=== PATIENT | female | born 1985 | race American Indian/Alaskan Native ===

== ENCOUNTER 2017-06-25 09:46 | Inpatient (IN) | payer MEDICAID ==
[2017-06-25] MEDS ORDERED: XYLOCAINE 2% INFILTRATI ONE (09:50)
[2017-06-25] MEDS ORDERED: ZOFRAN IV PRN (09:50)
[2017-06-25] MEDS ORDERED: ePHEDrine SULFATE IV PRN ×2 (09:50→17:19)
[2017-06-25] MEDS ORDERED: PITOCin/NS 20 UNIT/1000ML DRIP 20 UNITS/1,000 ML BAG IV SCH ×2 (10:00→20:30)
--- NOTE | 2017-06-25 10:14 | History and Physical Report ---
History of Present Illness Date of examination: 06/25/17 (pt called c/o SROM) Date of admission: 06/25/17 09:46 History of present illness: EDC Confirmation: 06/17/2017 Gestational Age: 7 2/7 weeks Past History Para: 2 2 Mult. Births: 0 Prev : 0 Prev. attempt? 0 Aborta: 0 Elect. Ab: 0 Spont. Ab: 0 Ectopics: 0 # 1 Delivery date: 01/17/2005 Hours of labor: 9 Anesthesia type: epidural Name: Lizbeth Past Medical History: Anemia Past Surgical History: Reviewed history from 01/22/2012 and no changes required: Cholecystectomy---2005 Family History Summary: Other family member - Has Family History Breast Cancer - Entered On: 10/31/2016 General Comments - FH: Family History of Hypertension No Family History of Breast Cancer No Family History of Colon Cancer No Family History of Ovarvian Cancer Social History: Patient is single no etoh, no illicit drug use, no tobacco use [employer] Risk Factors: Smoked Tobacco Use: Current every day smoker Cigarettes: Yes -- 3cig pack(s) per day, Counseled to quit/cut down: yes Alcohol use: no Past Medical History Abnormal PAP: negative Uterine Anomaly: negative Social Hx: Patient is single no etoh, no illicit drug use, no tobacco use [employer] Infection History Hx of STD: chlamydia Personal hx. of genital herpes: no Partner hx. of genital herpes: no Genetic History Congenital Heart Defect: Mom: no Dad: no Chloe Disease: Mom: no Dad: no Thalassemia Mom: no Dad: no Neural Tube Defect Mom: no Dad: no Down's Syndrome Mom: no Dad: no Gopal-Sachs Mom: no Dad: no Sickle Cell Disease/Trait Mom: yes Dad: no Comments: 1/2 brother has trait Hemophilia Mom: no Dad: no Muscular Dystrophy Mom: no Dad: no Cystic Fibrosis Mom: no Dad: no [place] Chorea Mom: no Dad: no Mental Retardation Mom: no Dad: no Fragile X Mom: no Dad: no Other Genetic/Chromosomal Disorder Mom: no Dad: no Child w/other defect Mom: no Dad: no Enviromental Exposures Xray Exposure: no Medication, drug, or alcohol use since LMP: no Chemical/Other Exposure: no Exposure to Cat Liter: no Active Medications (reviewed today): RX 1 TABS ( VIT-FE FUMARATE-FA TABS) one po q day FEOSOL 325 (65 FE) MG TABS (FERROUS SULFATE) one q day ZOFRAN ODT 8 MG TBDP (ONDANSETRON) 1 po q12hrs prn Current Allergies (reviewed today): No known allergies Laboratory Results Date/Time Collected: 10/31/2016 Routine Urinalysis Leukocytes: negative Nitrite: negative Urobilinogen: negative Protein: negative Blood: negative Ketone: negative Bilirubin: negative Glucose: negative Urine HCG: positive Review of Systems General Complains of fatigue. Denies fever, chills, sweats, anorexia, weakness, malaise, weight loss and sleep disorder. Complains of pelvic pain. Denies vaginal discharge, incontinence, dysuria, hematuria, urinary frequency, amenorrhea, menorrhagia, abnormal vaginal bleeding, genital sores, decreased libido, painful periods, painful sex, urinary urgency, hot flashes, vaginal dryness, vaginal itching and vaginal odor. CV Denies chest pains, palpitations, syncope, dyspnea on exertion, orthopnea, PND and peripheral edema. Resp Denies cough, dyspnea at rest, excessive sputum, hemoptysis, wheezing and pleurisy. GI Complains of nausea and vomiting. Denies diarrhea, constipation, change in bowel habits, abdominal pain, melena, hematochezia, jaundice, gas/bloating, indigestion/heartburn, dysphagia and odynophagia. Breast Complains of breast pain. Denies left breast lump, right breast lump, nipple discharge, bloody discharge from nipple, abnormal mammogram and breast enlargement. Psych Denies depression, anxiety, irritability and mood swings. PHYSICAL EXAM HEENT: normocephalic, no lesions or deformities Neck/Thyroid: supple, thyroid normal Skin no ulcers, xanthomas Chest: respiratory effort normal, clear to auscultation Breasts: skin/areolae normal, no masses, no nipple discharge, no erythema/warmth /tenderness, and axillae normal. 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 Vulva/Vagina: No lesions, normal BUS, normal rugae Cervix: normal appearance, no lesions, no discharge, no cmt Uterus: unable to palpate due to obesity Adnexae: unable to palpate due to obesity Rectovaginal: exam defered Past History - Obstetrical History Expected Date of Delivery: 06/17/17 Actual Gestation: 41 Week(s) 1 Day(s) : 3 Para: 2 Number of Living Children: 2 Medications and Allergies Allergies Allergy/AdvReac Type Severity Reaction Status Date / Time No Known Allergies Allergy Unverified 06/25/17 11:20 Home Medications Medication Instructions Recorded Confirmed Last Taken Type Pnv No.95/Ferrous Fum/Folic AC 06/25/17 Unknown History [ Vitamins Tablet] Pnv No.95/Ferrous Fum/Folic AC 1 tab PO DAILY 06/25/17 06/25/17 Unknown History [ Vitamins Tablet] Pnv No.95/Ferrous Fum/Folic AC 1 tab PO DAILY 06/25/17 06/25/17 06/24/17 10:00 History [ Vitamins Tablet] Active Meds: Active Medications Ephedrine Sulfate (Ephedrine Sulfate) 10 mg IV Q2M PRN PRN Reason: Hypotension Fentanyl (Sublimaze) 100 mcg IV Q2H PRN PRN Reason: Labor Pain Lactated Ringer's (Lactated Ringers) 1,000 mls @ 125 mls/hr IV DIRECT MAIKEL Oxytocin/Sodium Chloride (Pitocin/Ns 20 Unit/1000ml Drip) 20 units in 1,000 mls @ 125 mls/hr IV DIRECT MAIKEL Oxytocin/Sodium Chloride (Pitocin/Ns 30 Unit/500ml) 30 units in 500 mls @ 4 mls /hr IV Q30MIN MAIKEL PRN Reason: Protocol Lidocaine (Xylocaine 2%) 20 ml INFILTRATI ONCE ONE Stop: 06/25/17 09:51 Mineral Oil (Mineral Oil) 30 ml PO QHS PRN PRN Reason: Constipation Ondansetron HCl (Zofran) 4 mg IV Q8H PRN PRN Reason: Nausea And Vomiting Terbutaline Sulfate (Brethine) 0.25 mg SUB-Q ONCE PRN PRN Reason: Hyperstimulation/Hypertonicity - Physical Exam Breasts: Positive: normal Cardiovascular: Regular rate, Normal S1, Normal S2 Lungs: Positive: Clear to auscultation, Normal air movement Abdomen: Positive: normal appearance, soft, normal bowel sounds. Negative: distention, tenderness Genitourinary (Female): Positive: normal external genitalia, normal perenium Vulva: both: normal Vagina: Positive: normal moisture. Negative: discharge Cervix: Negative: lesion, discharge Uterus: Positive: normal size, normal contour Adnexa: both: normal Anus/Rectum: Positive: normal perianal skin, heme negative. Negative: rectal mass, hemorrhoids Extremities: Deep Tendon Reflex Grade: Normal +2 - Obstetrical FHR: category 1 Uterine Contraction Monitor Mode: External Cervical Dilatation: 1 (per RN) Cervical Effacement Percentage: 50 station: -3 Uterine Contraction Pattern: Irregular Uterine Tone Measurement Phase: Resting Uterine Contraction Intensity: Mild Results Result Diagrams: 06/25/17 10:50 All other labs normal. Strep Gp B ANNA Negative HBsAg Screen Negative Negative *1 Rubella Antibodies, IgG [L] <0.90 index Immune >0.99 *2 Non-immune <0.90 Equivocal 0.90 - 0.99 Immune >0.99 ABO Grouping O *3 Rh Factor Positive *4 Please note: Prior records for this patient's ABO / Rh type are not available for additional verification. Antibody Screen Negative Negative *5 RPR Non Reactive Non Reactive *6 WBC [H] 11.9 x10E3/uL 3.4-10.8 *7 RBC 5.04 x10E6/uL 3.77-5.28 *8 Hemoglobin [L] 10.4 g/dL 11.1-15.9 *9 Hematocrit [L] 32.0 % 34.0-46.6 *10 MCV [L] 64 fL 79-97 *11 MCH [L] 20.6 pg 26.6-33.0 *12 MCHC 32.5 g/dL 31.5-35.7 *13 RDW [H] 17.6 % 12.3-15.4 *14 Platelets 310 x10E3/uL 150-379 *15 Neutrophils 70 % *16 Lymphs 24 % *17 Monocytes 5 % *18 Eos 1 % *19 Basos 0 % *20 ! Immature Cells <No Reported Value> *21 Neutrophils (Absolute) [H] 8.3 x10E3/uL 1.4-7.0 *22 Lymphs (Absolute) 2.8 x10E3/uL 0.7-3.1 *23 Monocytes(Absolute) 0.6 x10E3/uL 0.1-0.9 *24 Eos (Absolute) 0.1 x10E3/uL 0.0-0.4 *25 Baso (Absolute) 0.0 x10E3/uL 0.0-0.2 *26 ! Immature Granulocytes 0 % *27 ! Immature Grans (Abs) 0.0 x10E3/uL 0.0-0.1 *28 ! NRBC <No Reported Value> *29 Hematology Comments: <No Reported Value> *30 Tests: (2) Cystic Fibrosis Profile (577300) ! CF, Screen Comment: *31 RESULTS: Negative for 32 mutations analyzed Tests: (3) HB Solu + Rflx [facility] ([id number]) Hemoglobin (Hgb) Solubility Negative Negative *33 Tests: (4) Panel 096021 ([id number]) HIV Screen 4th Generation wRfx Non Reactive Non Reactive *34 Tests: (5) HCV Ab w/Rflx to Verification ([id number]) ! HCV Ab <0.1 s/co ratio 0.0-0.9 *35 Tests: (6) Comment: ([id number]) ! Comment: [facility] *36 Non reactive HCV antibody screen is consistent with no HCV infection, unless recent infection is suspected or other evidence exists to indicate HCV infection. Assessment and Plan 32yo @ 41 weeks here for IOL GBS negative Orders in EMR
[2017-06-25] MEDS ORDERED: SUBLIMAZE IV PRN (11:30)
[2017-06-25 11:43] LABS: Mean Corpuscular HGB Conc 31 % (30-34); Platelet Count 278 K/mm3 (140-440); Red Blood Count 5.17 M/mm3 (3.65-5.03)
[2017-06-25 11:45] LABS: Mean Corpuscular Hemoglobin 21 pg (28-32); Mean Corpuscular Volume 68 fl (79-97)
[2017-06-25] MEDS ORDERED: BRETHINE SUB-Q PRN (12:00)
[2017-06-25] MEDS: LACTATED RINGERS 1,000 ML IV SCH ×3 (12:08→20:32)
[2017-06-25] MEDS: PITOCin/NS 30 UNIT/500ML 30 UNITS/500 ML BAG IV SCH ×2 (12:09→17:23)
--- NOTE | 2017-06-25 16:26 | Progress Note ---
Assessment and Plan - Patient Problems (1) 41 weeks gestation of Onset Date: ~06/25/17 Current Visit: Yes Status: Acute Plan to address problem: Pt is not grossly ruptured as thought this AM BBOW noted on this exam SVE 3,70,- 2 Fentanyl IVP given Bolus for epidural started Pit @ 8mu hold until epidural is placed. Re-eval after epidural. Subjective - Subjective Date of service: 06/25/17 (pt c/o pain Req Epidural) Principal diagnosis: IUP @ 41 weeks IOL Interval history: EDC Confirmation: 06/17/2017 Gestational Age: 7 2/7 weeks Past History Para: 2 2 Mult. Births: 0 Prev : 0 Prev. attempt? 0 Aborta: 0 Elect. Ab: 0 Spont. Ab: 0 Ectopics: 0 # 1 Delivery date: 01/17/2005 Hours of labor: 9 Anesthesia type: epidural Name: Lizbeth Past Medical History: Anemia Past Surgical History: Reviewed history from 01/22/2012 and no changes required: Cholecystectomy---2005 Family History Summary: Other family member - Has Family History Breast Cancer - Entered On: 10/31/2016 General Comments - FH: Family History of Hypertension No Family History of Breast Cancer No Family History of Colon Cancer No Family History of Ovarvian Cancer Social History: Patient is single no etoh, no illicit drug use, no tobacco use [employer] Risk Factors: Smoked Tobacco Use: Current every day smoker Cigarettes: Yes -- 3cig pack(s) per day, Counseled to quit/cut down: yes Alcohol use: no Past Medical History Abnormal PAP: negative Uterine Anomaly: negative Social Hx: Patient is single no etoh, no illicit drug use, no tobacco use [employer] Infection History Hx of STD: chlamydia Personal hx. of genital herpes: no Partner hx. of genital herpes: no Genetic History Congenital Heart Defect: Mom: no Dad: no Chloe Disease: Mom: no Dad: no Thalassemia Mom: no Dad: no Neural Tube Defect Mom: no Dad: no Down's Syndrome Mom: no Dad: no Gopal-Sachs Mom: no Dad: no Sickle Cell Disease/Trait Mom: yes Dad: no Comments: 1/2 brother has trait Hemophilia Mom: no Dad: no Muscular Dystrophy Mom: no Dad: no Cystic Fibrosis Mom: no Dad: no [place] Chorea Mom: no Dad: no Mental Retardation Mom: no Dad: no Fragile X Mom: no Dad: no Other Genetic/Chromosomal Disorder Mom: no Dad: no Child w/other defect Mom: no Dad: no Enviromental Exposures Xray Exposure: no Medication, drug, or alcohol use since LMP: no Chemical/Other Exposure: no Exposure to Cat Liter: no Active Medications (reviewed today): RX 1 TABS ( VIT-FE FUMARATE-FA TABS) one po q day FEOSOL 325 (65 FE) MG TABS (FERROUS SULFATE) one q day ZOFRAN ODT 8 MG TBDP (ONDANSETRON) 1 po q12hrs prn Current Allergies (reviewed today): No known allergies Laboratory Results Date/Time Collected: 10/31/2016 Routine Urinalysis Leukocytes: negative Nitrite: negative Urobilinogen: negative Protein: negative Blood: negative Ketone: negative Bilirubin: negative Glucose: negative Urine HCG: positive Review of Systems General Complains of fatigue. Denies fever, chills, sweats, anorexia, weakness, malaise, weight loss and sleep disorder. Complains of pelvic pain. Denies vaginal discharge, incontinence, dysuria, hematuria, urinary frequency, amenorrhea, menorrhagia, abnormal vaginal bleeding, genital sores, decreased libido, painful periods, painful sex, urinary urgency, hot flashes, vaginal dryness, vaginal itching and vaginal odor. CV Denies chest pains, palpitations, syncope, dyspnea on exertion, orthopnea, PND and peripheral edema. Resp Denies cough, dyspnea at rest, excessive sputum, hemoptysis, wheezing and pleurisy. GI Complains of nausea and vomiting. Denies diarrhea, constipation, change in bowel habits, abdominal pain, melena, hematochezia, jaundice, gas/bloating, indigestion/heartburn, dysphagia and odynophagia. Breast Complains of breast pain. Denies left breast lump, right breast lump, nipple discharge, bloody discharge from nipple, abnormal mammogram and breast enlargement. Psych Denies depression, anxiety, irritability and mood swings. PHYSICAL EXAM HEENT: normocephalic, no lesions or deformities Neck/Thyroid: supple, thyroid normal Skin no ulcers, xanthomas Chest: respiratory effort normal, clear to auscultation Breasts: skin/areolae normal, no masses, no nipple discharge, no erythema/warmth /tenderness, and axillae normal. 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 Vulva/Vagina: No lesions, normal BUS, normal rugae Cervix: normal appearance, no lesions, no discharge, no cmt Uterus: unable to palpate due to obesity Adnexae: unable to palpate due to obesity Rectovaginal: exam defered Patient reports: movement normal, contractions Objective - Vital Signs Vital Signs: Vital Signs - 12hr 06/25/17 06/25/17 06/25/17 10:34 11:55 11:59 Temperature 97.2 F L Pulse Rate 126 H 107 H 107 H Respiratory 16 Rate Blood Pressure 136/79 Blood Pressure 136/79 [Right] O2 Sat by Pulse 98 Oximetry 06/25/17 16:16 Temperature Pulse Rate Respiratory 16 Rate Blood Pressure Blood Pressure [Right] O2 Sat by Pulse Oximetry - Exam Breasts: deferred Cardiovascular: Regular rate Lungs: Clear to auscultation, Normal air movement Abdomen: Present: normal appearance, soft. Absent: distention, tenderness Uterus: Present: normal FHR: auscultation normal, category 1 Uterine Contraction Monitor Mode: External Cervical Dilatation: 3 (BBOW; bloody show) Cervical Effacement Percentage: 70 station: -2 Uterine Contraction Pattern: Regular Uterine Tone Measurement Phase: Resting Uterine Contraction Intensity: Moderate Extremities: normal Deep Tendon Reflex Grade: Normal +2 - Labs Labs: Abnormal Labs 06/25/17 10:50 WBC 14.7 H RBC 5.17 H MCV 68 L MCH 21 L Laboratory Results - last 24 hr 06/25/17 06/25/17 10:50 10:50 WBC 14.7 H RBC 5.17 H Hgb 11.0 Hct 35.0 MCV 68 L MCH 21 L MCHC 31 RDW 15.0 Plt Count 278 Blood Type O POSITIVE Antibody Screen Negative
[2017-06-25] MEDS ORDERED: NARCAN 2 MG/2 ML IV PRN (17:19)
--- NOTE | 2017-06-25 17:19 | Anesthesia Consultation ---
Anesthesia Consult and Med Hx Date of service: 06/25/17 - Airway Anesthetic Teeth Evaluation: Good ROM Head & Neck: Adequate Mental/Hyoid Distance: Adequate Mallampati Class: Class III Intubation Access Assessment: Possibly Difficult - Pulmonary Exam CTA: Yes - Cardiac Exam Cardiac Exam: RRR - Pre-Operative Health Status ASA Pre-Surgery Classification: ASA3 Proposed Anesthetic Plan: Epidural, Spinal - Pulmonary Hx Asthma: No COPD: No Hx Pneumonia: No - Cardiovascular System Hx Hypertension: No - Central Nervous System Hx Seizures: No Hx Psychiatric Problems: No - Endocrine Hx Renal Disease: No Hx End Stage Renal Disease: No Hx Hypothyroidism: No Hx Hyperthyroidism: No - Hematic Hx Anemia: No Hx Sickle Cell Disease: No - Other Systems Hx Alcohol Use: No Hx Obesity: Yes (morbid, BMI > 40) - Additional Comments Anesthesia Medical History Comments: +IUP
[2017-06-25] MEDS ORDERED: fentaNYL-BUPIV 2 MCG/ML-0.125% 200 MCG/100 ML BAG EPIDURAL SCH (17:20)
[2017-06-25] MEDS ORDERED: WATER FOR IRRIG STERILE IR ONE (17:40)
[2017-06-25] MEDS ORDERED: NACL 0.9% IR ONE (17:40)
[2017-06-25] MEDS ORDERED: ANCEF/STERILE WATER 2 GM/20 ML 2 GM/20 ML SYRINGE IV ONE (17:43)
[2017-06-25] MEDS ORDERED: ZOFRAN ONE (17:44)
[2017-06-25] MEDS ORDERED: NEO SYNEPHRINE/NS Syringe(OR USE) IV ONE (17:45)
[2017-06-25] MEDS ORDERED: XYLOCAINE MPF 2% ONE (17:47)
[2017-06-25] MEDS ORDERED: LACTATED RINGERS 1,000 ML ONE (17:50)
[2017-06-25] MEDS ORDERED: VERSED ONE (17:57)
[2017-06-25] MEDS ORDERED: ePHEDrine SULFATE ONE (18:06)
[2017-06-25] MEDS ORDERED: SUBLIMAZE ONE (18:18)
[2017-06-25] MEDS ORDERED: NACL 0.9% 1000 ML 1,000 ML ONE (18:22)
[2017-06-25] MEDS ORDERED: PEPCID IV ONE (18:35)
[2017-06-25] MEDS ORDERED: REGLAN IV ONE (18:35)
[2017-06-25] MEDS ORDERED: BICITRA PO ONE (18:35)
[2017-06-25] MEDS ORDERED: NARCAN 0.4 MG/1 ML IV PRN ×2 (18:44→20:30)
[2017-06-25] MEDS ORDERED: BENADRYL IV PRN (18:44)
[2017-06-25] MEDS ORDERED: MORPHINE IV PRN ×2 (18:45)
--- NOTE | 2017-06-25 18:45 | Progress Note ---
Assessment and Plan AROM meconium when first examined thought the rectum was palpated stat bedside US done vertex Baby sucked on my finger face presentation Mentum anterior called Stat c/s called Pt verbally consented Subjective - Subjective Date of service: 06/25/17 (stat c/s called; bradycardia; face presentation) Principal diagnosis: IUP @ 41 weeks IOL Interval history: EDC Confirmation: 06/17/2017 Gestational Age: 7 2/7 weeks Past History Para: 2 2 Mult. Births: 0 Prev : 0 Prev. attempt? 0 Aborta: 0 Elect. Ab: 0 Spont. Ab: 0 Ectopics: 0 # 1 Delivery date: 01/17/2005 Hours of labor: 9 Anesthesia type: epidural Name: Lizbeth Past Medical History: Anemia Past Surgical History: Reviewed history from 01/22/2012 and no changes required: Cholecystectomy---2005 Family History Summary: Other family member - Has Family History Breast Cancer - Entered On: 10/31/2016 General Comments - FH: Family History of Hypertension No Family History of Breast Cancer No Family History of Colon Cancer No Family History of Ovarvian Cancer Social History: Patient is single no etoh, no illicit drug use, no tobacco use [employer] Risk Factors: Smoked Tobacco Use: Current every day smoker Cigarettes: Yes -- 3cig pack(s) per day, Counseled to quit/cut down: yes Alcohol use: no Past Medical History Abnormal PAP: negative Uterine Anomaly: negative Social Hx: Patient is single no etoh, no illicit drug use, no tobacco use [employer] Infection History Hx of STD: chlamydia Personal hx. of genital herpes: no Partner hx. of genital herpes: no Genetic History Congenital Heart Defect: Mom: no Dad: no Chloe Disease: Mom: no Dad: no Thalassemia Mom: no Dad: no Neural Tube Defect Mom: no Dad: no Down's Syndrome Mom: no Dad: no Gopal-Sachs Mom: no Dad: no Sickle Cell Disease/Trait Mom: yes Dad: no Comments: 1/2 brother has trait Hemophilia Mom: no Dad: no Muscular Dystrophy Mom: no Dad: no Cystic Fibrosis Mom: no Dad: no [place] Chorea Mom: no Dad: no Mental Retardation Mom: no Dad: no Fragile X Mom: no Dad: no Other Genetic/Chromosomal Disorder Mom: no Dad: no Child w/other defect Mom: no Dad: no Enviromental Exposures Xray Exposure: no Medication, drug, or alcohol use since LMP: no Chemical/Other Exposure: no Exposure to Cat Liter: no Active Medications (reviewed today): RX 1 TABS ( VIT-FE FUMARATE-FA TABS) one po q day FEOSOL 325 (65 FE) MG TABS (FERROUS SULFATE) one q day ZOFRAN ODT 8 MG TBDP (ONDANSETRON) 1 po q12hrs prn Current Allergies (reviewed today): No known allergies Laboratory Results Date/Time Collected: 10/31/2016 Routine Urinalysis Leukocytes: negative Nitrite: negative Urobilinogen: negative Protein: negative Blood: negative Ketone: negative Bilirubin: negative Glucose: negative Urine HCG: positive Review of Systems General Complains of fatigue. Denies fever, chills, sweats, anorexia, weakness, malaise, weight loss and sleep disorder. Complains of pelvic pain. Denies vaginal discharge, incontinence, dysuria, hematuria, urinary frequency, amenorrhea, menorrhagia, abnormal vaginal bleeding, genital sores, decreased libido, painful periods, painful sex, urinary urgency, hot flashes, vaginal dryness, vaginal itching and vaginal odor. CV Denies chest pains, palpitations, syncope, dyspnea on exertion, orthopnea, PND and peripheral edema. Resp Denies cough, dyspnea at rest, excessive sputum, hemoptysis, wheezing and pleurisy. GI Complains of nausea and vomiting. Denies diarrhea, constipation, change in bowel habits, abdominal pain, melena, hematochezia, jaundice, gas/bloating, indigestion/heartburn, dysphagia and odynophagia. Breast Complains of breast pain. Denies left breast lump, right breast lump, nipple discharge, bloody discharge from nipple, abnormal mammogram and breast enlargement. Psych Denies depression, anxiety, irritability and mood swings. PHYSICAL EXAM HEENT: normocephalic, no lesions or deformities Neck/Thyroid: supple, thyroid normal Skin no ulcers, xanthomas Chest: respiratory effort normal, clear to auscultation Breasts: skin/areolae normal, no masses, no nipple discharge, no erythema/warmth /tenderness, and axillae normal. 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/Vagina: No lesions, normal BUS, normal rugae Cervix: normal appearance, no lesions, no discharge, no cmt Uterus: unable to palpate due to obesity Adnexae: unable to palpate due to obesity Rectovaginal: exam defered Patient reports: movement normal, contractions Objective - Vital Signs Vital Signs: Vital Signs - 12hr 06/25/17 06/25/17 06/25/17 10:34 11:55 11:59 Temperature 97.2 F L Pulse Rate 126 H 107 H 107 H Respiratory 16 Rate Blood Pressure 136/79 Blood Pressure 136/79 [Right] O2 Sat by Pulse 98 Oximetry 06/25/17 06/25/17 06/25/17 16:16 17:06 17:07 Temperature Pulse Rate 108 H 100 H Respiratory 16 Rate Blood Pressure 130/74 Blood Pressure [Right] O2 Sat by Pulse 100 Oximetry 06/25/17 06/25/17 06/25/17 17:08 17:11 17:14 Temperature Pulse Rate 104 H 104 H 133 H Respiratory Rate Blood Pressure 133/71 Blood Pressure [Right] O2 Sat by Pulse 75 L 97 Oximetry 06/25/17 06/25/17 06/25/17 17:16 17:21 17:25 Temperature Pulse Rate 103 H 125 H 106 H Respiratory Rate Blood Pressure 114/51 Blood Pressure [Right] O2 Sat by Pulse 98 99 92 Oximetry 06/25/17 06/25/17 06/25/17 17:26 17:31 17:33 Temperature Pulse Rate 104 H 85 Respiratory Rate Blood Pressure 161/108 Blood Pressure [Right] O2 Sat by Pulse 100 100 Oximetry 06/25/17 06/25/17 17:34 17:36 Temperature Pulse Rate 93 H 90 Respiratory Rate Blood Pressure 105/59 Blood Pressure [Right] O2 Sat by Pulse 100 Oximetry - Exam Cervical Dilatation: 6 (face presentation) Cervical Effacement Percentage: 70 (mentum anterior) station: -2 Uterine Contraction Pattern: Regular (pitocin off immediately) Extremities: normal Deep Tendon Reflex Grade: Normal +2 - Labs Labs: Abnormal Labs 06/25/17 10:50 WBC 14.7 H RBC 5.17 H MCV 68 L MCH 21 L Laboratory Results - last 24 hr 06/25/17 06/25/17 10:50 10:50 WBC 14.7 H RBC 5.17 H Hgb 11.0 Hct 35.0 MCV 68 L MCH 21 L MCHC 31 RDW 15.0 Plt Count 278 Blood Type O POSITIVE Antibody Screen Negative
--- NOTE | 2017-06-25 18:46 | Anesthesia Day of Surgery ---
Anesthesia Day of Surgery - Day of Surgery Patient Examined: Yes Patient H&P Reviewed: Yes Patient is NPO: Yes
[2017-06-25] MEDS ORDERED: MORPHINE ONE (18:48)
[2017-06-25] MEDS ORDERED: ANCEF/STERILE WATER 2 GM/20 ML 2 GM/20 ML SYRINGE IV NR (19:00)
[2017-06-25] MEDS ORDERED: SODIUM CHLORIDE FLUSH SYRINGE 10 ML IV NR (19:00)
--- NOTE | 2017-06-25 19:15 | Post Anesthesia Evaluation ---
- Post Anesthesia Evaluation Patient Participated: Yes Airway Patent: Yes Stable Respiratory Function: Yes Nausea/Vomiting: No Temp > 96.8F: Yes Pain Manageable: Yes Adequeate Hydration: Yes Anesthesia Complications: No Block Receding Appropriately: Yes Patient on Ventilator: No
--- NOTE | 2017-06-25 19:20 | Operative Report ---
Operative Report Operative Report: Date of procedure: June 25 2017 Pre-operative diagnosis: Intrauterine at 41 weeks, nonreassuring heart tracing malpresentation, desires permanent sterilization Post-operative diagnosis: Same Procedure name(s): Emergency primary low transverse section converted to a T incision extension with bilateral tubal ligation Surgeon: Elio Newby MD Bioinformatics Engineer: Angle Jensen certified nurse radio television announcer Anesthesia: Epidural EBL: 850 mL Complications: None Findings: Upon entering the uterus appears to be off transverse backdown acquired to T the uterine incision Female weight 7 lbs. 6 oz. Apgars 4 at 1 minute and 8 at 5 minutes. Patient with normal tubes and ovaries bilaterally Specimen(s): Placenta and portion of the right and left fallopian tube Procedure: The patient was brought to the operating room. In a stat manner She was then placed in left lateral tilt. Epidural was dosed. Prepped and draped in a stat manner. After testing for adequate anesthesia level, a Pfannenstiel incision was made t. This incision was taken down to the fascia. The fascia was then nicked in the midline. This incision was extended out laterally with Lay scissors. The fascia was then sharply and bluntly from the underlying rectus muscles. The rectus muscles were bluntly and sharply . The peritoneum was then entered with the light rail operator's fingers. This incision was spread vertically with care not to damage the bladder below. Bladder blade was placed The bladder flap was then formed sharply and bluntly with Metzenbaum scissors. . A transverse incision was made in lower uterine segment. This incision was extended laterally with the operators fingers through thick of myometrium. The amniotic sac was then entered bluntly with the light rail operator's fingers. Infant position as noted above and due to inability to deliver through a transverse incision a T-incision was made up towards the uterine fundus. The infant was delivered from the vertex position after turning the infant. Bulb suction on the mother's abdomen. Cord was double clamped and cut. The infant was then passed to the nursery personnel who were in attendance. The above scores were given by the nursery personnel. The placenta was then bluntly removed. The uterus was then externalized and wiped clean the remaining products. The uterine incision was closed in layers. Including 3 layers to securely close the T portion of the incision .The first incision was closed in a locking manner using 0 Vicryl. This was followed by imbricating stitch also with 0 Vicryl. Attention was then switched to the patient's fallopian tubes. Each fallopian tube was identified by its fimbriated end. A portion of each tube was grabbed with the Slime clamp approximately 2-3 cm from the cornua. Each loop was double ligated with 0 plain suture. The loop were cut with Metzenbaum scissors. Each stump was found to be hemostatic and cauterized with the Bovie. Attention was then switched back to the uterine closure. This closure was hemostatic. The bladder flap was copiously irrigated and found to be hemostatic. The pelvis was copiously irrigated and found to be hemostatic. The uterus was then placed back to the patient's abdomen. Surgicel was placed over the uterine incision for postoperative hemostasis. The retractors were removed. The rectus muscles were inspected and found to be hemostatic. The fascia was then closed in a running manner using 0 Vicryl. This incision was hemostatic irrigation Bovie. The skin was reapproximated with 4-0 Vicryl subcuticularly. The patient tolerated procedure well. Her urine was clear. The infant was admitted to the well baby nursery. The patient was accompanied to recovery room in good condition. Instrument count correct 3.
[2017-06-25] MEDS: TORADOL IV PRN (19:51)
[2017-06-25] MEDS ORDERED: MYLICON PO PRN (20:30)
[2017-06-25] MEDS ORDERED: TORADOL IV SCH (20:30)
[2017-06-25] MEDS ORDERED: ANUCORT-HC PR PRN (20:30)
[2017-06-25] MEDS ORDERED: MILK OF MAGNESIA PO PRN (20:30)
[2017-06-25] MEDS ORDERED: D5LR 1,000 ML IV SCH (20:30)
[2017-06-25] MEDS ORDERED: TUCKS PAD TP PRN (20:30)
[2017-06-25] MEDS ORDERED: LANSINOH TP PRN (20:30)
[2017-06-25] MEDS ORDERED: ANCEF/NS 1 GM/50 ML 1 GM/50 ML BAG IV SCH (20:30)
[2017-06-25] MEDS ORDERED: ceFAZolin 1 GM in NACL 0.9% 20 ML IV SCH (21:00)
[2017-06-25] MEDS ORDERED: MINERAL OIL PO PRN (22:00)
[2017-06-26] MEDS: ceFAZolin 1 GM in NACL 0.9% 20 ML IV SCH ×2 (01:33→10:10)
[2017-06-26 05:47] LABS: Hematocrit 23.3 % (30.3-42.9); Hemoglobin 7.4 gm/dl (10.1-14.3)
--- NOTE | 2017-06-26 06:13 | Progress Note ---
Assessment and Plan - Patient Problems (1) delivery delivered Onset Date: ~06/25/17 Current Visit: Yes Status: Acute Plan to address problem: Pt A&O X 3 No c/o voiced About to be OOB to toilet. VSS FF below umb Lochia small Dressing D&I H&H pending Doing well s/p section P: continue pathway Advance diet and activity as tolerated MMR to be offered Pt is nonimmune (2) Rubella non-immune status, antepartum Onset Date: ~06/26/17 Current Visit: Yes Status: Acute Plan to address problem: Vaccine to be offered Subjective - Subjective Date of service: 06/26/17 (pt w/o complaint) Principal diagnosis: 12 hours s/p section nonreassuring tracing/ malpresentation Interval history: EDC Confirmation: 06/17/2017 Gestational Age: 7 2/7 weeks Past History Para: 2 2 Mult. Births: 0 Prev : 0 Prev. attempt? 0 Aborta: 0 Elect. Ab: 0 Spont. Ab: 0 Ectopics: 0 # 1 Delivery date: 01/17/2005 Hours of labor: 9 Anesthesia type: epidural Name: Lizbeth Past Medical History: Anemia Past Surgical History: Reviewed history from 01/22/2012 and no changes required: Cholecystectomy---2005 Family History Summary: Other family member - Has Family History Breast Cancer - Entered On: 10/31/2016 General Comments - FH: Family History of Hypertension No Family History of Breast Cancer No Family History of Colon Cancer No Family History of Ovarvian Cancer Social History: Patient is single no etoh, no illicit drug use, no tobacco use [employer] Risk Factors: Smoked Tobacco Use: Current every day smoker Cigarettes: Yes -- 3cig pack(s) per day, Counseled to quit/cut down: yes Alcohol use: no Past Medical History Abnormal PAP: negative Uterine Anomaly: negative Social Hx: Patient is single no etoh, no illicit drug use, no tobacco use [employer] Infection History Hx of STD: chlamydia Personal hx. of genital herpes: no Partner hx. of genital herpes: no Genetic History Congenital Heart Defect: Mom: no Dad: no Chloe Disease: Mom: no Dad: no Thalassemia Mom: no Dad: no Neural Tube Defect Mom: no Dad: no Down's Syndrome Mom: no Dad: no Gopal-Sachs Mom: no Dad: no Sickle Cell Disease/Trait Mom: yes Dad: no Comments: 1/2 brother has trait Hemophilia Mom: no Dad: no Muscular Dystrophy Mom: no Dad: no Cystic Fibrosis Mom: no Dad: no [place] Chorea Mom: no Dad: no Mental Retardation Mom: no Dad: no Fragile X Mom: no Dad: no Other Genetic/Chromosomal Disorder Mom: no Dad: no Child w/other defect Mom: no Dad: no Enviromental Exposures Xray Exposure: no Medication, drug, or alcohol use since LMP: no Chemical/Other Exposure: no Exposure to Cat Liter: no Active Medications (reviewed today): RX 1 TABS ( VIT-FE FUMARATE-FA TABS) one po q day FEOSOL 325 (65 FE) MG TABS (FERROUS SULFATE) one q day ZOFRAN ODT 8 MG TBDP (ONDANSETRON) 1 po q12hrs prn Current Allergies (reviewed today): No known allergies Laboratory Results Date/Time Collected: 10/31/2016 Routine Urinalysis Leukocytes: negative Nitrite: negative Urobilinogen: negative Protein: negative Blood: negative Ketone: negative Bilirubin: negative Glucose: negative Urine HCG: positive Review of Systems General Complains of fatigue. Denies fever, chills, sweats, anorexia, weakness, malaise, weight loss and sleep disorder. Complains of pelvic pain. Denies vaginal discharge, incontinence, dysuria, hematuria, urinary frequency, amenorrhea, menorrhagia, abnormal vaginal bleeding, genital sores, decreased libido, painful periods, painful sex, urinary urgency, hot flashes, vaginal dryness, vaginal itching and vaginal odor. CV Denies chest pains, palpitations, syncope, dyspnea on exertion, orthopnea, PND and peripheral edema. Resp Denies cough, dyspnea at rest, excessive sputum, hemoptysis, wheezing and pleurisy. GI Complains of nausea and vomiting. Denies diarrhea, constipation, change in bowel habits, abdominal pain, melena, hematochezia, jaundice, gas/bloating, indigestion/heartburn, dysphagia and odynophagia. Breast Complains of breast pain. Denies left breast lump, right breast lump, nipple discharge, bloody discharge from nipple, abnormal mammogram and breast enlargement. Psych Denies depression, anxiety, irritability and mood swings. PHYSICAL EXAM HEENT: normocephalic, no lesions or deformities Neck/Thyroid: supple, thyroid normal Skin no ulcers, xanthomas Chest: respiratory effort normal, clear to auscultation Breasts: skin/areolae normal, no masses, no nipple discharge, no erythema/warmth /tenderness, and axillae normal. 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, or edema SORT LINE Exams Vulva/Vagina: No lesions, normal BUS, normal rugae Cervix: normal appearance, no lesions, no discharge, no cmt Uterus: unable to palpate due to obesity Adnexae: unable to palpate due to obesity Rectovaginal: exam defered Patient reports: voiding normally, ambulating normally (OOB to toilet) [place]: doing well Objective - Vital Signs Latest vital signs: Vital Signs Temp Pulse Resp BP BP Pulse Ox 06/26/17 00:35 99.0 F 118 H 20 114/71 98 06/25/17 20:15 98.1 F 98 H 18 142/72 99 06/25/17 20:01 93 H 22 153/95 100 06/25/17 19:55 99 H 18 116/90 100 06/25/17 19:50 106 H 21 116/90 100 06/25/17 19:45 102 H 19 108/81 100 06/25/17 19:40 105 H 18 121/71 100 06/25/17 19:35 109 H 16 124/94 100 06/25/17 19:30 95 H 17 124/94 100 06/25/17 19:25 97 H 17 120/66 98 06/25/17 19:20 102 H 19 141/77 100 06/25/17 19:15 94 H 17 128/80 100 06/25/17 19:10 106 H 16 123/71 100 06/25/17 19:05 108 H 20 125/73 100 06/25/17 19:02 104 H 19 06/25/17 19:00 97.6 F 06/25/17 17:36 90 100 06/25/17 17:34 93 H 105/59 06/25/17 17:33 161/108 06/25/17 17:31 85 100 06/25/17 17:26 104 H 100 06/25/17 17:25 106 H 92 06/25/17 17:21 125 H 114/51 99 06/25/17 17:16 103 H 98 06/25/17 17:14 133 H 133/71 06/25/17 17:11 104 H 97 06/25/17 17:08 104 H 75 L 06/25/17 17:07 100 H 130/74 06/25/17 17:06 108 H 100 06/25/17 16:16 16 06/25/17 11:59 107 H 136/79 06/25/17 11:55 97.2 F L 107 H 16 136/79 06/25/17 10:34 126 H 98 Intake and Output 06/25/17 06/25/17 06/26/17 14:59 22:59 06:59 Intake Total 3270.933 240 Output Total 170 600 Balance 3100.933 -360 Intake: IV 3270.933 Lactated Ringers 1,000 ml 1050.000 @ 125 mls/hr IV DIRECT MAIKEL Rx#:[id number] PITOCin/NS 30 UNIT/500ML 20.933 30 units In 500 ml @ 4 mls/hr IV Q30MIN MAIKEL Rx#: [id number] Oral 240 Output: Urine 170 600 Indwelling Catheter 600 Uretheral ([place]) 75 Other: Total, Intake Amount 240 Total, Output Amount 200 # Voids Void 1 Weight 230 lb Estimated Blood Loss 850 Patient Weight 06/26/17 06:59 Weight 230 lb - Exam Breasts: Present: normal Cardiovascular: Present: Regular rate Lungs: Present: Clear to auscultation, Normal air movement Abdomen: Present: normal appearance, soft, normal bowel sounds Uterus: Present: normal, firm, fundal height below umbilicus Extremities: Present: edema Deep Tendon Reflex Grade: Normal +2 Incision: Present: dry, intact, dressed (to be removed later today) - Labs Labs: Abnormal lab results 06/25/17 06/26/17 Range/Units 10:50 05:30 WBC 14.7 H (4.5-11.0) K/mm3 RBC 5.17 H (3.65-5.03) M/mm3 Hgb 7.4 L D (10.1-14.3) gm/dl Hct 23.3 L D (30.3-42.9) % MCV 68 L (79-97) fl MCH 21 L (28-32) pg
[2017-06-26] MEDS: NORCO 5/325 PO PRN ×2 (06:35→16:10)
[2017-06-26] MEDS ORDERED: FEOSOL PO SCH (10:00)
[2017-06-26] MEDS: COLACE PO SCH ×2 (10:05→23:48)
[2017-06-26] MEDS: TORADOL IV PRN (10:05)
--- NOTE | 2017-06-26 10:24 | Progress Note ---
Subjective Date of service: 06/26/17 Principal diagnosis: 12 hours s/p section nonreassuring tracing/ malpresentation Interval history: 1st POD after Patient is in the bed, comfortable. Pain is well controlled with pain meds. Ambulated well. No residual neurological deficit. No anesthesia complications Objective - Constitutional Vitals: Vital Signs - 12hr 06/26/17 06/26/17 06/26/17 00:35 00:36 04:45 Temperature 99.0 F 98.8 F Pulse Rate 118 H 118 H 105 H Respiratory 20 20 Rate Blood Pressure 114/71 Blood Pressure 114/71 122/66 [Right] O2 Sat by Pulse 98 98 97 Oximetry 06/26/17 06/26/17 06/26/17 05:58 08:23 08:59 Temperature 98.7 F Pulse Rate 102 H 104 H 92 H Respiratory 20 13 Rate Blood Pressure 122/66 114/52 Blood Pressure [Right] O2 Sat by Pulse 98 100 97 Oximetry - Labs CBC & Chem 7: 06/26/17 05:30 Labs: Abnormal lab results 06/25/17 06/26/17 Range/Units 10:50 05:30 WBC 14.7 H (4.5-11.0) K/mm3 RBC 5.17 H (3.65-5.03) M/mm3 Hgb 7.4 L D (10.1-14.3) gm/dl Hct 23.3 L D (30.3-42.9) % MCV 68 L (79-97) fl MCH 21 L (28-32) pg
[2017-06-26] MEDS: FEOSOL PO SCH ×2 (16:10→23:48)
[2017-06-26] MEDS: MOTRIN PO PRN (16:11)
[2017-06-26] MEDS: PRENATAL VITAMIN PO SCH ×2 (16:22→18:28)
[2017-06-26] MEDS: PERCOCET 5/325 PO PRN ×2 (18:29→22:43)
[2017-06-27] MEDS: PERCOCET 5/325 PO PRN ×4 (05:29→21:00)
[2017-06-27] MEDS: MOTRIN PO PRN ×3 (05:35→21:00)
--- NOTE | 2017-06-27 06:26 | Progress Note ---
Assessment and Plan - Patient Problems (1) delivery delivered Onset Date: ~06/25/17 Current Visit: Yes Status: Acute Plan to address problem: Pt resting quietly No c/o voiced VSS FF below umb Lochia scant Dressing removed Incision D&I H&H stable Pt asymptomatic Doing well s/p section P: continue pathway Advance as tolerated D/C tomorrow if stable Subjective - Subjective Date of service: 06/27/17 (pt w/o complaint) Principal diagnosis: Day # 1 s/p section nonreassuring tracing/ malpresentation Interval history: EDC Confirmation: 06/17/2017 Gestational Age: 7 2/7 weeks Past History Para: 2 2 Mult. Births: 0 Prev : 0 Prev. attempt? 0 Aborta: 0 Elect. Ab: 0 Spont. Ab: 0 Ectopics: 0 # 1 Delivery date: 01/17/2005 Hours of labor: 9 Anesthesia type: epidural Name: Lizbeth Past Medical History: Anemia Past Surgical History: Reviewed history from 01/22/2012 and no changes required: Cholecystectomy---2005 Family History Summary: Other family member - Has Family History Breast Cancer - Entered On: 10/31/2016 General Comments - FH: Family History of Hypertension No Family History of Breast Cancer No Family History of Colon Cancer No Family History of Ovarvian Cancer Social History: Patient is single no etoh, no illicit drug use, no tobacco use [employer] Risk Factors: Smoked Tobacco Use: Current every day smoker Cigarettes: Yes -- 3cig pack(s) per day, Counseled to quit/cut down: yes Alcohol use: no Past Medical History Abnormal PAP: negative Uterine Anomaly: negative Social Hx: Patient is single no etoh, no illicit drug use, no tobacco use [employer] Infection History Hx of STD: chlamydia Personal hx. of genital herpes: no Partner hx. of genital herpes: no Genetic History Congenital Heart Defect: Mom: no Dad: no Chloe Disease: Mom: no Dad: no Thalassemia Mom: no Dad: no Neural Tube Defect Mom: no Dad: no Down's Syndrome Mom: no Dad: no Gopal-Sachs Mom: no Dad: no Sickle Cell Disease/Trait Mom: yes Dad: no Comments: 1/2 brother has trait Hemophilia Mom: no Dad: no Muscular Dystrophy Mom: no Dad: no Cystic Fibrosis Mom: no Dad: no [place] Chorea Mom: no Dad: no Mental Retardation Mom: no Dad: no Fragile X Mom: no Dad: no Other Genetic/Chromosomal Disorder Mom: no Dad: no Child w/other defect Mom: no Dad: no Enviromental Exposures Xray Exposure: no Medication, drug, or alcohol use since LMP: no Chemical/Other Exposure: no Exposure to Cat Liter: no Active Medications (reviewed today): RX 1 TABS ( VIT-FE FUMARATE-FA TABS) one po q day FEOSOL 325 (65 FE) MG TABS (FERROUS SULFATE) one q day ZOFRAN ODT 8 MG TBDP (ONDANSETRON) 1 po q12hrs prn Current Allergies (reviewed today): No known allergies Laboratory Results Date/Time Collected: 10/31/2016 Routine Urinalysis Leukocytes: negative Nitrite: negative Urobilinogen: negative Protein: negative Blood: negative Ketone: negative Bilirubin: negative Glucose: negative Urine HCG: positive Review of Systems General Complains of fatigue. Denies fever, chills, sweats, anorexia, weakness, malaise, weight loss and sleep disorder. Complains of pelvic pain. Denies vaginal discharge, incontinence, dysuria, hematuria, urinary frequency, amenorrhea, menorrhagia, abnormal vaginal bleeding, genital sores, decreased libido, painful periods, painful sex, urinary urgency, hot flashes, vaginal dryness, vaginal itching and vaginal odor. CV Denies chest pains, palpitations, syncope, dyspnea on exertion, orthopnea, PND and peripheral edema. Resp Denies cough, dyspnea at rest, excessive sputum, hemoptysis, wheezing and pleurisy. GI Complains of nausea and vomiting. Denies diarrhea, constipation, change in bowel habits, abdominal pain, melena, hematochezia, jaundice, gas/bloating, indigestion/heartburn, dysphagia and odynophagia. Breast Complains of breast pain. Denies left breast lump, right breast lump, nipple discharge, bloody discharge from nipple, abnormal mammogram and breast enlargement. Psych Denies depression, anxiety, irritability and mood swings. PHYSICAL EXAM HEENT: normocephalic, no lesions or deformities Neck/Thyroid: supple, thyroid normal Skin no ulcers, xanthomas Chest: respiratory effort normal, clear to auscultation Breasts: skin/areolae normal, no masses, no nipple discharge, no erythema/warmth /tenderness, and axillae normal. 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, or edema TELEMETRY NURSE Exams Vulva/Vagina: No lesions, normal BUS, normal rugae Cervix: normal appearance, no lesions, no discharge, no cmt Uterus: unable to palpate due to obesity Adnexae: unable to palpate due to obesity Rectovaginal: exam defered Patient reports: appetite normal, voiding normally, pain well controlled, ambulating normally : doing well Objective - Vital Signs Latest vital signs: Vital Signs Temp Pulse Resp BP BP Pulse Ox 06/27/17 05:35 20 06/27/17 05:29 20 06/26/17 23:50 97.6 F 97 H 20 121/65 06/26/17 22:43 20 06/26/17 16:43 99.6 F 113 H 20 111/64 06/26/17 12:32 98.6 F 82 20 115/59 99 06/26/17 08:59 92 H 13 97 06/26/17 08:23 98.7 F 104 H 20 114/52 100 Intake and Output 06/26/17 06/26/17 06/27/17 14:59 22:59 06:59 Intake Total 240 600 480 Output Total 500 650 Balance -260 -50 480 Intake: Oral 240 600 480 Output: Urine 500 650 Void 500 650 Other: Total, Intake Amount 120 240 240 Total, Output Amount 500 300 # Voids Void 1 - Exam Breasts: Present: normal Cardiovascular: Present: Regular rate Lungs: Present: Clear to auscultation, Normal air movement Abdomen: Present: normal appearance, normal bowel sounds Uterus: Present: normal, fundal height below umbilicus Extremities: Present: edema Deep Tendon Reflex Grade: Normal +2 Incision: Present: normal, dry, intact
[2017-06-27] MEDS: PRENATAL VITAMIN PO SCH (10:46)
[2017-06-27] MEDS: COLACE PO SCH ×2 (10:47→21:00)
[2017-06-27] MEDS: FEOSOL PO SCH ×2 (10:47→21:00)
--- NOTE | 2017-06-28 06:14 | Discharge Summary ---
Providers - Providers Date of Admission: 06/25/17 09:46 Date of discharge: 06/28/17 (pt desires d/c today) Attending physician: JUDD CARRILLO 06/25/17 20:30 Consult to Compliance Testing Analyst [CONS] Routine Reason For Exam: Primary care physician: JUDD CARRILLO Hospitalization Reason for admission: active labor Delivery: Procedure: bilateral tubal ligation, primary low transverse Episiotomy: none Laceration: none Incision: normal, dry, intact Other procedures: none complications: none Discharge diagnosis: IUP at term delivered baby: female Hospital course: uncomplicated primary section face presentation / non-reassuring tracing Pt w/o complaint VSS FF below umb Lochia scant Incision D&I Pt asymptomatic Low H&H post delivery Doing well s/p section P: d/c home today with instructions RTO 1 week Condition at discharge: Good Disposition: DC-01 TO HOME OR SELFCARE - Discharge Diagnoses (1) delivery delivered Status: Acute Comment: RTO 1 week postop check Plan - Discharge Medications Prescriptions: Ferrous Sulfate [Feosol 325 MG tab] 325 mg PO BID #60 tablet Ibuprofen [Motrin 800 MG tab] 800 mg PO Q6H PRN #30 tablet PRN Reason: Pain oxyCODONE /ACETAMINOPHEN [Percocet 5/325 mg] 1 - 2 tab PO Q4H PRN #30 tablet PRN Reason: Pain, Moderate - Provider Discharge Summary Activity: routine, no sex for 6 weeks, no heavy lifting 4 weeks, no strenuous exercise Diet: routine Instructions: routine Additional instructions: [] Smoking cessation referral if applicable(refer to patient education folder for contact #) [] Refer to [facility] Booklet Call your doctor immediately for: * Fever > 100.5 * Heavy vaginal bleeding ( >1 pad per hour) * Severe persistent headache * Shortness of breath * Reddened, hot, painful area to leg or breast * Drainage or odor from incision. * Keep incision clean and dry at all times and follow doctor's instructions regarding bathing/showering - Follow up plan Follow up: JUDD CARRILLO MD [Primary Care Provider] - 7 Days (Congratulations! Please call [phone] to schedule your postoperative visit in 1 week. Take medications as prescribed. Call with any concerns.)
[2017-06-28] MEDS: MOTRIN PO PRN (07:49)
[2017-06-28] MEDS: PERCOCET 5/325 PO PRN (07:50)
[2017-06-28 14:49] VITALS: BP 118/58
== END 2017-06-28 15:10 | disposition home or self-care (01) | DRG 765 ==
LOC: LD 09:46 → APU 18:24 → OB 20:29
PROVIDERS: ADMIT Obstetrics & Gynecology; ATTEND Obstetrics & Gynecology
PROC: 10D00Z1 Extraction of Products of Conception, Low, Open Approach (ICD-10-PCS; principal; 2017-06-25)
PROC: 0UB70ZZ Excision of Bilateral Fallopian Tubes, Open Approach (ICD-10-PCS; 2017-06-25)
DX: O76 Abnormality in fetal heart rate and rhythm complicating labor and delivery (principal); Z68.41 Body mass index [BMI] 40.0-44.9, adult; F17.210 Nicotine dependence, cigarettes, uncomplicated; O32.3XX0 Maternal care for face, brow and chin presentation, not applicable or unspecified; O99.334 Smoking (tobacco) complicating childbirth; O99.214 Obesity complicating childbirth; E66.01 Morbid (severe) obesity due to excess calories; Z3A.41 41 weeks gestation of pregnancy; Z37.0 Single live birth; Z90.49 Acquired absence of other specified parts of digestive tract; Z80.3 Family history of malignant neoplasm of breast; Z82.49 Family history of ischemic heart disease and other diseases of the circulatory system; Z30.2 Encounter for sterilization
CPT/HCPCS: 36415; 85014; 85018; 85027; 86592; 86850; 86900; 86901; 88302; 88307; 99211; C1765; G0463; J0690; J1200; J1885; J2250; J2270; J2310; J2370; J2405; J2590; J3010; J7030; J7120; J7121